=== PATIENT | male | born 1980 | race Two or more races ===

== ENCOUNTER 2018-06-23 10:46 | Outpatient (CLI) | payer OTHER | END 2018-06-23 10:54 | disposition home or self-care (01) | LOC: RAD 501 10:46 | DX: M25.572 Pain in left ankle and joints of left foot (principal) ==

== ENCOUNTER → 2020-09-21 | Outpatient (CLI) | payer OTHER | END | disposition home or self-care (01) | LOC: SONOGRAMA 11:45 | DX: N50.89 Other specified disorders of the male genital organs (principal) ==

== ENCOUNTER 2020-12-28 10:32 | Outpatient (CLI) | payer OTHER | END 2020-12-28 10:57 | disposition home or self-care (01) | LOC: SONOGRAMA 10:32 | DX: E04.1 Nontoxic single thyroid nodule (principal) ==